=== PATIENT | male | born 1985 | race American Indian/Alaskan Native ===

== ENCOUNTER 2022-05-27 10:08 | Emergency (ER) | payer SELFPAY ==
--- NOTE | 2022-05-27 10:56 | XRay Report ---
XR shoulder 2+V RT INDICATION / CLINICAL INFORMATION: INJURY. COMPARISON: None available. FINDINGS: BONES/JOINT(S): No acute fracture or subluxation. Normal bone mineralization. SOFT TISSUES: No significant abnormality. ADDITIONAL FINDINGS: None. IMPRESSION: 1. No acute findings. Signer Name: Vamsi Goodrich MD Signed: 05/27/2022 10:52 AM Workstation Name: [id number]
[2022-05-27 13:18] VITALS: BP 122/71
[2022-05-27] MEDS ORDERED: KETOROLAC 60 MG/2 ML INJ IM ONE (14:10)
[2022-05-27] MEDS ORDERED: HYDROcodone/ACETAMINOPHEN 5-325 MG TAB PO ONE (14:10)
--- NOTE | 2022-05-27 14:16 | Emergency Department Report ---
ED General Adult HPI - General Chief complaint: Shoulder Injury Stated complaint: ARM/SHOULDER PAIN Source: patient Mode of arrival: Ambulatory Limitations: No Limitations - History of Present Illness Initial comments: 36-year-old male no past medical history reports today with right-sided shoulder pain. Denies any injury. 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 Reports that that night after work he started to have pain in his right shoulder. No acute symptoms reported at this moment patient reported tenderness OTC Motrin for pain with no relief. Severity scale (0 -10): 8 - Related Data Previous Rx's Medication Instructions Recorded Last Taken Type Naproxen [Naprosyn] 500 mg PO BID #20 tablet 10/03/14 Unknown Rx Tramadol HCl [traMADol] 50 mg PO Q6H PRN #25 tablet 10/03/14 Unknown Rx methylPREDNISolone [Medrol Dose 4 mg PO DAILY #1 packet 10/03/14 Unknown Rx Luis] Ibuprofen [Motrin] 800 mg PO Q8HR PRN #21 tablet 05/27/22 Unknown Rx methOCARBAMOL [Robaxin TAB] 500 mg PO Q8HR PRN 7 Days #21 tab 05/27/22 Unknown Rx Allergies Allergy/AdvReac Type Severity Reaction Status Date / Time No Known Allergies Allergy Unverified 10/03/14 16:47 ED Review of Systems ROS: Stated complaint: ARM/SHOULDER PAIN Other details as noted in HPI Constitutional: denies: chills, fever Eyes: denies: eye pain, eye discharge, vision change ENT: denies: ear pain, throat pain Respiratory: denies: cough, shortness of breath, wheezing Cardiovascular: denies: chest pain, palpitations Endocrine: no symptoms reported Gastrointestinal: denies: abdominal pain, nausea, diarrhea Genitourinary: denies: urgency, dysuria Musculoskeletal: myalgia, other (Right shoulder pain). denies: back pain, joint swelling, arthralgia Skin: denies: rash, lesions Neurological: denies: headache, weakness, paresthesias Psychiatric: denies: anxiety, depression Hematological/Lymphatic: denies: easy bleeding, easy bruising ED Past Medical Hx - Past Medical History Previous Medical History?: No - Surgical History Past Surgical History?: No - Social History Smoking Status: Current Every Day Smoker Substance Use Type: Alcohol, Non Opiate Pain - Medications Home Medications: Home Medications Medication Instructions Recorded Confirmed Last Taken Type Naproxen [Naprosyn] 500 mg PO BID #20 tablet 10/03/14 Unknown Rx Tramadol HCl [traMADol] 50 mg PO Q6H PRN #25 tablet 10/03/14 Unknown Rx methylPREDNISolone [Medrol Dose 4 mg PO DAILY #1 packet 10/03/14 Unknown Rx Luis] Ibuprofen [Motrin] 800 mg PO Q8HR PRN #21 tablet 05/27/22 Unknown Rx methOCARBAMOL [Robaxin TAB] 500 mg PO Q8HR PRN 7 Days #21 tab 05/27/22 Unknown Rx ED Physical Exam - General Limitations: No Limitations General appearance: alert, in no apparent distress - Head Head exam: Present: atraumatic, normocephalic - Eye Eye exam: Present: normal appearance - ENT ENT exam: Present: mucous membranes moist - Neck Neck exam: Present: normal inspection - Respiratory Respiratory exam: Present: normal lung sounds bilaterally. Absent: respiratory distress - Cardiovascular Cardiovascular Exam: Present: regular rate, normal rhythm. Absent: systolic murmur, diastolic murmur, rubs, gallop - GI/Abdominal GI/Abdominal exam: Present: soft, normal bowel sounds - Rectal Rectal exam: Present: deferred - Extremities Exam Extremities exam: Present: normal inspection - Expanded Upper Extremity Exam Right Shoulder Exam: Present: tenderness (Right shoulder). Absent: swelling, deformity, dislocation - Back Exam Back exam: Present: normal inspection - Neurological Exam Neurological exam: Present: alert, oriented X3 - Psychiatric Psychiatric exam: Present: normal affect, normal mood - Skin Skin exam: Present: warm, dry, intact, normal color. Absent: rash ED Course Vital Signs 05/27/22 05/27/22 10:24 13:17 Temperature 98.4 F 97.9 F Pulse Rate 77 63 Respiratory 16 16 Rate Blood Pressure 116/71 Blood Pressure 122/71 [Left] O2 Sat by Pulse 97 98 Oximetry ED Medical Decision Making - Radiology Data [facility] [address] [place] [address] XRay Report Signed Patient: SYDNEE DARBY MR#: [id number] : 1985 Acct:[id number] Age/Sex: 36 / M ADM Date: 05/27/22 Loc: ED Attending Dr: Ordering Physician: ED DOCMD Date of Service: 05/27/22 Procedure(s): XR shoulder 2+V RT Accession Number(s): [id number] cc: ED MD LEIGHA Fluoro Time In Minutes: XR shoulder 2+V RT INDICATION / CLINICAL INFORMATION: INJURY. COMPARISON: None available. FINDINGS: BONES/JOINT(S): No acute fracture or subluxation. Normal bone mineralization. SOFT TISSUES: No significant abnormality. ADDITIONAL FINDINGS: None. IMPRESSION: 1. No acute findings. Signer Name: Vamsi Goodrich MD Signed: 05/27/2022 10:52 AM Workstation Name: [id number] Transcribed By: RILEY Dictated By: Vamsi Goodrich MD Electronically Authenticated By: Vamsi Goodrich MD Signed Date/Time: 05/27/221051 DD/ 51 - Medical Decision Making No acute process noted on x-ray. Pain medicine given here in ER. Patient discharged home with oral medication for pain relief. Vital signs stable. X-ray results discussed with patient. Patient agrees with plan of care and verbalized understanding. Vital Signs 05/27/22 05/27/22 10:24 13:17 Temperature 98.4 F 97.9 F Pulse Rate 77 63 Respiratory 16 16 Rate Blood Pressure 116/71 Blood Pressure 122/71 [Left] O2 Sat by Pulse 97 98 Oximetry Critical care attestation.: If time is entered above; I have spent that time in minutes in the direct care of this critically ill patient, excluding procedure time. ED Disposition Clinical Impression: Shoulder pain, right Disposition: 01 HOME / SELF CARE / HOMELESS Is pt being admited?: No Condition: Stable Instructions: Shoulder Pain Prescriptions: Ibuprofen [Motrin] 800 mg PO Q8HR PRN #21 tablet PRN Reason: Pain , Severe (7-10) methOCARBAMOL [Robaxin TAB] 500 mg PO Q8HR PRN 7 Days #21 tab PRN Reason: Pain , Severe (7-10) Referrals: COTY MATHIS MD [Primary Care Provider] - 3-5 Days Time of Disposition: 14:32
== END 2022-05-27 14:55 | disposition home or self-care (01) ==
LOC: ED 10:08
DX: M25.511 Pain in right shoulder (principal); F17.200 Nicotine dependence, unspecified, uncomplicated; F10.20 Alcohol dependence, uncomplicated
CPT/HCPCS: 73030; 96372; 99283; J1885